=== PATIENT | female | born 1990 | race Caucasian/White ===

== ENCOUNTER 2020-07-13 06:12 | Outpatient (CLI) | payer OTHER ==
[2020-07-13 09:44] LABS: BHCG - Serum Negative (NEGATIVE); Pregs Control Background? CLEAR/WHITE (CLR/WHITE); Pregs Control Bar Appear? YES (CONTROL BAR)
[2020-07-13 18:00] LABS: SARS-CoV-2 MS2 Positive; SARS-CoV-2 N Gene Negative; SARS-CoV-2 S Gene Negative; SARS-CoV-2 by NAA Not Detected (NotDetected); SARS-CoV-2 orf1ab Negative
== END 2020-07-13 06:13 | disposition home or self-care (01) ==
LOC: LABBT 06:12
PROVIDERS: ATTEND Orthopaedic Surgery
DX: Z01.812 Encounter for preprocedural laboratory examination (principal); G56.01 Carpal tunnel syndrome, right upper limb; Z20.828 Contact with and (suspected) exposure to other viral communicable diseases
CPT/HCPCS: 84703; 87635; U0003

== ENCOUNTER 2020-07-15 06:45 | Day surgery (SDC) | payer OTHER ==
[2020-07-14 12:07] VITALS: BMI 28.3
--- NOTE | 2020-07-14 13:15 | HP ---
HISTORY OF PRESENT ILLNESS: The patient is a 30-year-old female with a several-year history of progressive symptoms of right carpal tunnel syndrome. 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 PAST MEDICAL HISTORY: The patient is otherwise in good health. She has a history of anxiety. CURRENT MEDICATIONS: Include Wellbutrin, clonidine, and Effexor. ALLERGIES: SHE HAS NO KNOWN ALLERGIES. FAMILY HISTORY: Otherwise, unremarkable. SOCIAL HISTORY: Otherwise, unremarkable. REVIEW OF SYSTEMS: Otherwise, unremarkable. PHYSICAL EXAMINATION: GENERAL: Reveals a healthy female. HEENT: Unremarkable. NECK: Supple. CHEST: Clear. HEART: Regular rate and rhythm. ABDOMEN: Soft, nontender. PELVIC: Deferred. RECTAL: Deferred. BREASTS: Deferred. EXTREMITIES: Pertinent findings of the right wrist; there is no swelling or atrophy. There is no bony tenderness. There is some tenderness over the median nerve. There is pain with extremes of motion. There is a positive Tinel test and positive Phalen test. There is some slight subjective numbness in median nerve distribution. There are palpable distal pulses. Motor exam is intact. IMAGING STUDIES: MRI report of the right hand done in [place] reveals mild tendinitis, but no other major abnormalities. IMPRESSION: Carpal tunnel syndrome, right wrist. PLAN: Endoscopic, possible open right carpal tunnel release. The nature of the surgery, length of recovery, potential complications such as infection, loss of motion, incomplete relief, nerve injury, recurrence, need for additional treatment, or repeat surgery have been discussed in detail. Job ID: [id number]
[2020-07-15] MEDS ORDERED: Ondansetron PF 4 MG/2 ML Vial ONE (09:01)
[2020-07-15] MEDS ORDERED: Lidocaine 1% PF 5 ML VIAL ONE (09:01)
[2020-07-15] MEDS ORDERED: Dexamethasone 20 MG/5 ML VIAL ONE (09:01)
[2020-07-15] MEDS ORDERED: Ketorolac Tromethamine 30 MG/ML VIAL ONE (09:01)
[2020-07-15] MEDS ORDERED: PROPOFOL 200 MG/20 ML VIAL ONE (09:01)
[2020-07-15] MEDS ORDERED: Lidocaine 1% (PF) 30 ML VIAL ONE (09:38)
[2020-07-15] MEDS ORDERED: Fentanyl 100 MCG/2 ML VIAL ONE (09:45)
[2020-07-15] MEDS ORDERED: Midazolam HCl 2 mg/2 ml Vial ONE (09:45)
--- NOTE | 2020-07-15 11:34 | OP ---
DATE OF PROCEDURE: 07/15/2020 ANESTHESIA: General. PREOPERATIVE DIAGNOSIS: Right carpal tunnel syndrome. POSTOPERATIVE DIAGNOSIS: Right carpal tunnel syndrome. PROCEDURE PERFORMED: Right endoscopic carpal tunnel release. DESCRIPTION OF PROCEDURE: After satisfactory anesthesia was induced in supine position, the patient was prepped and draped in routine manner. The right arm was elevated, exsanguinated with an Esmarch bandage, and the tourniquet inflated to 250 mmHg. A 2 cm transverse incision was made in the proximal wrist flexion crease, carried down through subcutaneous tissues, and bleeding points were controlled with Bovie cautery. Using sharp and blunt dissection, a distally-based flap at the deep forearm fascia was developed and retracted distally. Palmaris longus tendon was retracted radially. The proximal edge of the deep forearm fascia was split under direct visualization with small scissors to make sure there was no proximal impingement of the median nerve. Synovium elevator was introduced beneath the transverse carpal ligament inline with the ring finger and the synovium cleaned from the under surface. Carpal tunnel dilators were inserted. The [employer] endoscopic carpal tunnel system was introduced beneath the transverse carpal ligament inline with the ring finger. The distal edge of the ligament was easily identified and divided in a distal to proximal direction by pulling the trigger of the assembly, engaging the knife, and withdrawing the scope proximally. This was done in several stages to make sure there was complete division of the transverse carpal ligament, which was documented with the video printer. After withdrawing the scope, a carpal tunnel dilator could be inserted into the carpal tunnel and there was markedly improved passage and subcutaneous position of the instrument. The scope was reintroduced into the carpal tunnel. There was wide separation of the 2 leaves of the transverse carpal ligament. The tourniquet was released after 5 minutes. There was no excessive bleeding and the scope was withdrawn. The wound was thoroughly irrigated and the skin closed with a running subcuticular 3-0 nylon. Sterile dressing was applied and the patient immobilized in a Velcro wrist splint. She was awakened and taken to recovery room in stable condition. There were no apparent intraoperative complications. The estimated blood loss was negligible. The patient will be discharged home in satisfactory condition, instructed on ice and elevation, and given written wound care instructions. She has tramadol at home for pain. She will be rechecked in my office in 10 to 14 days or sooner if there are any problems prior to that time. Job ID: [id number]
[2020-07-15] MEDS ORDERED: HYDROcodone/Acetaminophen 5/325 mg Tablet ONE (12:21)
== END 2020-07-15 12:50 | disposition home or self-care (01) ==
LOC: SDC 06:45
PROVIDERS: ATTEND Orthopaedic Surgery
PROC: 01N54ZZ Release Median Nerve, Percutaneous Endoscopic Approach (ICD-10-PCS; principal; 2020-07-15)
DX: G56.01 Carpal tunnel syndrome, right upper limb (principal); F41.9 Anxiety disorder, unspecified; F32.9 Major depressive disorder, single episode, unspecified; F95.2 Tourette's disorder; Z79.899 Other long term (current) drug therapy
CPT/HCPCS: J0690; J1100; J1885; J2001; J2250; J2405; J2704; J3010